=== PATIENT | female | born 1990 | race Caucasian/White ===

== ENCOUNTER 2021-03-06 17:30 | Emergency (ER) | payer OTHER ==
[~2021-03-06] VITALS: Ht 162.6 cm; Wt 103.2 kg
--- NOTE | 2021-03-06 18:13 | EKG ---
[address] [address] Test Date: 2021-03-06 Test Time: 17:37:02 Pat Name: AMADO STARR Department: Room: Gender: F Edge Grinder: HORTENSIA : 1990 Requested By: DEPARTMENT EMERGENCY Order Number: [id number] Reading MD: Wilian De Leon MD Measurements Intervals Maribel Rate: 124 P: -34 AK: 110 QRS: 31 QRSD: 76 T: 25 QT: 292 QTc: 423 Interpretive Statements SINUS TACHYCARDIA Electronically Signed On 03-08-2021 13:56:09 EXPANDER by Wilian De Leon MD
--- NOTE | 2021-03-06 18:18 | PHYS DOC ---
Past History Past Surgical History: No Surgical History Alcohol Use: None Adult General Chief Complaint Chief Complaint: RAPID HEART RATE HPI HPI Patient is a 30-year-old female who presents with a chief complaint of palpitations/rapid heart rate that started earlier today. States she did have a similar episode a couple days ago where she felt lightheaded. States he never had anything like this before but her sister does have a history of SVT and has had many episodes of the last few years with heart rate in the 200s. Denies any recent traumas, travels, illnesses, fevers, headache, chest pain, shortness of breath, abdominal pain, vomiting, dysuria, hematuria, blood in the stool or diarrhea. Denies any known ill contacts. Denies any alcohol, tobacco or drug use. States she is otherwise been eating and drinking normally for her. States she has felt thirsty more than usual over the last few days and has been urinating more as well. Review of Systems Review of Systems Review of systems otherwise unremarkable except noted in HPI Physical Exam Physical Exam Constitutional: Well developed, well nourished, no acute distress, non-toxic appearance. [] HENT: Normocephalic, atraumatic, bilateral external ears normal, oropharynx moist, no oral exudates, nose normal. [] Eyes: conjunctiva normal, no discharge. [] Neck: Normal range of motion, no tenderness, supple, no stridor. [] Cardiovascular:Heart rate regular rhythm, no murmur [] Lungs & Thorax: Bilateral breath sounds clear to auscultation [] Abdomen: soft, no tenderness, no masses, no pulsatile masses. [] Skin: Warm, dry, no erythema, no rash. [] Back: no CVA tenderness. [] Extremities: No tenderness, no cyanosis, no clubbing, ROM intact, no edema. [] Neurologic: Alert and oriented X 3, no focal deficits noted. [] Psychologic: Affect normal, judgement normal, mood normal. [] Current Patient Data Vital Signs Vital Signs Date Time Temp Pulse Resp B/P (MAP) Pulse Ox O2 Delivery O2 Flow Rate FiO2 03/06/21 17:41 99.1 128 20 128/87 (101) 100 Room Air EKG EKG [] Radiology/Procedures Radiology/Procedures [] Heart Score C/O Chest Pain: No Risk Factors: Risk Factors: DM, Current or recent (<one month) smoker, HTN, HLP, family history of CAD, obesity. Risk Scores: Risk Factors: DM, Current or recent (<one month) smoker, HTN, HLP, family history of CAD, obesity. Course & Med Decision Making Course & Med Decision Making Patient is a 30-year-old female who presents with a chief complaint of palpitations/rapid heart rate Vital signs notable for sinus tachycardia. Physical exam noted above. Patient placed on the monitor with IV access established and IV fluid begun. EKG not concerning. Troponin not concerning. D-dimer not concerning. Chest x- ray not concerning. Laboratory analysis not concerning. Urine negative. Urinalysis not concerning. On reassessment patient was asymptomatic with normal vital signs. Patient stated she is ready go home. Discussed all findings with patient. Advised to follow-up in the morning with primary care physician and set up a follow-up appointment immediately Gave return precautions to the ED. Patient grateful, verbalized understanding and agreed with plan of discharge. Dragon Disclaimer Dragon Disclaimer This electronic medical record was generated, in whole or in part, using a voice recognition dictation system. Departure Departure: Impression: Primary Impression: Palpitations Disposition: HOME / SELF CARE / HOMELESS Condition: GOOD Referrals: SHON SCHULTE DO (PCP) Patient Instructions: Palpitations Additional Instructions: Thank you for coming into the emergency department tonight and allowing us to take care of you. Please read the attached information carefully to go back over some of the things we discussed. Please be sure to stay well-hydrated and eat at least 3 nutritious meals a day. Please call your primary care physician first thing in the morning to update on your ED visit and set up a follow-up as soon as possible to discuss need for further evaluation and treatment as we discussed. Please come back to the ED with new or concerning symptoms as we discussed. NEAL COLES MD Mar 06, 2021 18:18
[2021-03-06] MEDS ORDERED: IV RINGERS SOLUTION,LACTATED 1,000 ML IV ONE (18:45)
[2021-03-06 19:02] LABS: BASO % 1 % (0-3); EOS # 0.1 x10^3/uL (0.0-0.7); EOS % 1 % (0-3); HEMOGLOBIN 13.7 g/dL (12.0-15.5); LYMPH # 2.1 x10^3/uL (1.0-4.8); LYMPH % 27 % (24-48); MEAN CORPUSCULAR HEMOGLOBIN 30 pg (25-35); MEAN CORPUSCULAR HGB CONC 33 g/dL (31-37); MEAN CORPUSCULAR VOLUME 91 fL (79-100); MONO # 0.6 x10^3/uL (0.0-1.1); MONO % 8 % (0-9); NEUT # 4.9 x10^3uL (1.8-7.7); NEUT % 63 % (31-73); PLATELET COUNT 264 x10^3/uL (140-400); RED CELL DISTRIBUTION WIDTH 13.3 % (11.5-14.5); WHITE BLOOD COUNT 7.7 x10^3/uL (4.0-11.0)
[2021-03-06 19:13] LABS: BILIRUBIN,URINE NEG (NEG); CLARITY,URINE CLEAR; COLOR,URINE YELLOW; GLUCOSE,URINE NEG (NEG)
[2021-03-06 19:14] LABS: BACTERIA,URINE FEW /HPF (0-FEW); NITRITE,URINE NEG (NEG); RBC,URINE 0 /HPF (0-2); UROBILINOGEN,URINE 0.2 mg/dL (0.2 mg/dL)
[2021-03-06 19:24] LABS: CALCIUM 9.3 mg/dL (8.5-10.1); GFR 64.3; POTASSIUM 3.5 mmol/L (3.5-5.1)
[2021-03-06 19:30] LABS: ALBUMIN 3.8 g/dL (3.4-5.0); ALBUMIN/GLOBULIN RATIO 1.2 (1.0-1.7); MAGNESIUM 2.1 mg/dL (1.8-2.4); TOTAL BILIRUBIN 0.3 mg/dL (0.2-1.0); TOTAL PROTEIN 7.1 g/dL (6.4-8.2)
[2021-03-06 19:56] VITALS: BP 106/57
--- NOTE | 2021-03-06 20:28 | RAD ---
Study: XR CHEST 1V Indication: Palpitations. Comparison: None. Findings: The cardiomediastinal silhouette and peter are within normal limits. No localized airspace opacity, pl eural effusion or pneumothorax. Impression: No acute radiographic abnormality of the chest. Electronically signed by: PAOLA PINO MD (03/06/2021 8:26 PM) [facility]
== END 2021-03-06 19:57 | disposition home or self-care (01) ==
LOC: ER 17:30
DX: R00.2 Palpitations (principal); R42 Dizziness and giddiness
CPT/HCPCS: 36415; 71045; 80053; 81001; 81025; 83735; 84484; 85025; 85379; 87086; 93005; 96360; 99285; J7120

== ENCOUNTER 2021-09-05 16:01 | Emergency (ER) | payer OTHER ==
[~2021-09-05] VITALS: Ht 162.6 cm; Wt 105.0 kg
[2021-09-05] MEDS ORDERED: IV NORMAL SALINE 1,000ML 1,000 ML IV ONE (16:45)
[2021-09-05 17:41] LABS: BASO # 0.1 x10^3/uL (0.0-0.2); BASO % 1 % (0-3); EOS # 0.2 x10^3/uL (0.0-0.7); EOS % 2 % (0-3); HEMATOCRIT 41.8 % (36.0-47.0); HEMOGLOBIN 13.7 g/dL (12.0-15.5); LYMPH # 2.1 x10^3/uL (1.0-4.8); LYMPH % 27 % (24-48); MEAN CORPUSCULAR HEMOGLOBIN 31 pg (25-35); MEAN CORPUSCULAR HGB CONC 33 g/dL (31-37); MEAN CORPUSCULAR VOLUME 93 fL (79-100); MONO # 0.7 x10^3/uL (0.0-1.1); MONO % 9 % (0-9); NEUT # 4.7 x10^3uL (1.8-7.7); NEUT % 62 % (31-73); PLATELET COUNT 252 x10^3/uL (140-400); RED BLOOD COUNT 4.49 x10^6/uL (3.50-5.40); RED CELL DISTRIBUTION WIDTH 12.9 % (11.5-14.5); WHITE BLOOD COUNT 7.7 x10^3/uL (4.0-11.0)
[2021-09-05 17:54] LABS: CALCIUM 9.2 mg/dL (8.5-10.1); CREATININE 0.7 mg/dL (0.6-1.0); POTASSIUM 3.9 mmol/L (3.5-5.1)
--- NOTE | 2021-09-05 18:57 | PHYS DOC ---
Past History Additional Past Medical Histor: SVT (PILAR DREW APRN) Past Surgical History: No Surgical History (PILAR DREW APRN) Alcohol Use: None (PILAR DREW APRN) General Adult EDM: Chief Complaint: RAPID HEART RATE HPI: HPI: Patient is a 30-year-old female who presents with concerns for low blood pressure. Patient states she checked her blood pressure at home and it was in the 90s. Patient reports has been feeling dizzy with position changes for the last couple of days. Denies recent illness. Denies shortness of breath, denies chest pain , patient states has been drinking plenty of fluids. Patient does have a history of sinus tachycardia and takes metoprolol. Denies all other medical history. (PILAR DREW APRN) Review of Systems: Review of Systems: ROS At least 10 ROS systems have been reviewed and are negative except as documented in the HPI. General: Negative except as outlined in HPI above. Skin: Negative except as outlined in HPI above. HEENT: Negative except as outlined in HPI above. Neck: Negative except as outlined in HPI above. Respiratory: Negative except as outlined in HPI above.. Cardiovascular: Negative except as outlined in HPI above. Abdomen: Negative except as outlined in HPI above. : Negative except as outlined in HPI above. Back/MSK: Negative except as outlined in HPI above. Neuro: Negative except as outlined in HPI above. Psych: Negative except as outlined in HPI above. (PILAR DREW APRN) Current Medications: Current Meds: Current Medications Medications (Trade) Dose Ordered Sig/Na Start Time Stop Time Status Last Admin Dose Admin Sodium Chloride 1,000 ml @ 1,000 mls/hr 1X ONCE 09/05/21 16:45 09/05/21 17:44 DC 09/05/21 17:21 1,000 MLS/HR (PILAR DREW APRN) Allergies: Allergies: Allergies Coded Allergies Type Severity Reaction Last Updated Verified No Known Drug Allergies 09/05/21 No (PILAR DREW APRN) Physical Exam: PE: Constitutional: Well developed, well nourished, no acute distress, non-toxic appearance. [] HENT: Normocephalic, atraumatic, bilateral external ears normal, oropharynx moist, no oral exudates, nose normal. [] Eyes: PERRLA, EOMI, conjunctiva normal, no discharge. [] Neck: Normal range of motion, no tenderness, supple, no stridor. [] Cardiovascular:Heart rate regular rhythm, no murmur [] Lungs & Thorax: Bilateral breath sounds clear to auscultation [] Abdomen: Bowel sounds normal, soft, no tenderness, no masses, no pulsatile masses. [] Skin: Warm, dry, no erythema, no rash. [] Back: No tenderness, no CVA tenderness. [] Extremities: No tenderness, no cyanosis, no clubbing, ROM intact, no edema. [] Neurologic: Alert and oriented X 3, normal motor function, normal sensory function, no focal deficits noted. [] Psychologic: Affect normal, judgement normal, mood normal. [] (PILAR DREW APRN) Current Patient Data: Labs: Laboratory Tests Test 09/05/21 17:15 White Blood Count 7.7 x10^3/uL (4.0-11.0) Red Blood Count 4.49 x10^6/uL (3.50-5.40) Hemoglobin 13.7 g/dL (12.0-15.5) Hematocrit 41.8 % (36.0-47.0) Mean Corpuscular Volume 93 fL (79-100) Mean Corpuscular Hemoglobin 31 pg (25-35) Mean Corpuscular Hemoglobin Concent 33 g/dL (31-37) Red Cell Distribution Width 12.9 % (11.5-14.5) Platelet Count 252 x10^3/uL (140-400) Neutrophils (%) (Auto) 62 % (31-73) Lymphocytes (%) (Auto) 27 % (24-48) Monocytes (%) (Auto) 9 % (0-9) Eosinophils (%) (Auto) 2 % (0-3) Basophils (%) (Auto) 1 % (0-3) Neutrophils # (Auto) 4.7 x10^3uL (1.8-7.7) Lymphocytes # (Auto) 2.1 x10^3/uL (1.0-4.8) Monocytes # (Auto) 0.7 x10^3/uL (0.0-1.1) Eosinophils # (Auto) 0.2 x10^3/uL (0.0-0.7) Basophils # (Auto) 0.1 x10^3/uL (0.0-0.2) Sodium Level 138 mmol/L (136-145) Potassium Level 3.9 mmol/L (3.5-5.1) Chloride Level 104 mmol/L (98-107) Carbon Dioxide Level 25 mmol/L (21-32) Anion Gap 9 (6-14) Blood Urea Nitrogen 16 mg/dL (7-20) Creatinine 0.7 mg/dL (0.6-1.0) Estimated GFR (Cockcroft-Gault) 97.0 Glucose Level 94 mg/dL (70-99) Calcium Level 9.2 mg/dL (8.5-10.1) Vital Signs: Vital Signs Date Time Temp Pulse Resp B/P (MAP) Pulse Ox O2 Delivery O2 Flow Rate FiO2 09/05/21 16:10 98.6 94 18 151/71 (97) 98 Room Air (PILAR DREW APRN) EKG: EKG: [] (PILAR DREW APRN) Radiology/Procedures: Radiology/Procedures: [] (PILAR DREW APRN) Heart Score: C/O Chest Pain: No Risk Factors: Risk Factors: DM, Current or recent (<one month) smoker, HTN, HLP, family history of CAD, obesity. Risk Scores: Score 0 - 3: 2.5% MACE over next 6 weeks - Discharge Home Score 4 - 6: 20.3% MACE over next 6 weeks - Admit for Clinical Observation Score 7 - 10: 72.7% MACE over next 6 weeks - Early Invasive Strategies (PILAR DREW APRN) Course & Med Decision Making: Course & Med Decision Making Pertinent Labs and Imaging studies reviewed. (See chart for details) [] 28-year-old male presents with concerns for low blood pressure. Patient reports her blood pressure was in the 90s at home. Patient's been having some dizziness for the last couple of days especially when standing up. Work-up in ER consist of CBC, CMP, EKG, urinalysis, . Patient given NS bolus. Orthostatics ordered. Patient blood pressure in the ER was 120s over 80s. Denies any chest pain, shortness of breath, headache, neuro symptoms. Urine is negative for . Orthostatics negative. Patient's heart rate did increase with standing. Advised patient to drink plenty of fluids. Patient is to follow-up with her PCP and possibly see cardiology. (PILAR DREW APRN) Marlo Disclaimer: Marlo Disclaimer: This electronic medical record was generated, in whole or in part, using a voice recognition dictation system. (PILAR DREW APRN) Departure Departure: Impression: Primary Impression: Dizziness Disposition: HOME / SELF CARE / HOMELESS Condition: STABLE Referrals: SHON SCHULTE DO (PCP) Patient Instructions: Hypotension, [id number] Additional Instructions: All of your labs came back unremarkable. You were given fluids. Your physical exam was also unremarkable. Please call your PCP on Tuesday make a follow-up appointment and possible referral for cardiology again. Make sure you are drinking plenty of fluids. Return to emergency room worsening symptoms or concerns such as shortness of breath. EMERGENCY DEPARTMENT GENERAL DISCHARGE INSTRUCTIONS Thank you for coming to [facility] (ED) today and trusting us with you care. We trust that you had a positivie experience in our Emergency Department. If you wish to speak to the department management, you may call the director at [phone]. YOUR FOLLOW UP INSTRUCTIONS ARE FOLLOWS: 1. Do you have a private Doctor? If you do not have a private doctor, please ask for a resource list of physicians or clinics that may be able to assist you with follow up care. 2. The Emergency Physician has interpreted your x-rays. The X-Ray specialist will also review them. If there is a change in the findings, you will be notified in 48 hours when at all possible. 3. A lab test or culture has been done, your results will be reviewed and you will be notified if you need a change in treatment. ADDITIONAL INSTRUCTIONS AND INFORMATION: 1. Your care today has been supervised by a physician who is specially trained in emergency care. Many problems require more than one evaluation for a complete diagnosis and treatment. We recommend that you schedule your follow up appointment as recommended to ensure complete treatment of you illness or injury. If you are unable to obtain follow up care and continue to have a problem, or if your condition worsens, we recommend that you return to the ED. 2. We are not able to safely determine your condition over the phone nor are we able to give sound medical advice over the phone. For these safety reasons, if you call for medical advice we will ask you to come to the ED for further evaluation. 3. If you have any questions regarding these discharge instructions please call the ED at [phone]. SAFETY INFORMATION: In the interest of safety, wellness, and injury prevention; we encourage you to wear your sealbelt, if you smoke; quite smoking, and we encourage family to use a protective helmet for bicycling and other sporting events that present an increased risk for head injury. IF YOUR SYMPTOMS WORSEN OR NEW SYMPTOMS DEVELOP, OR YOU HAVE CONCERNS ABOUT YOUR CONDITION; OR IF YOUR CONDITION WORSENS WHILE YOU ARE WAITING FOR YOUR FOLLOW UP APPOIN TMENT; EITHER CONTACT YOUR PRIMARY CARE DOCTOR, THE PHYSICIAN WHOSE NAME AND NUMBER YOU WERE GIVEN, OR RETURN TO THE ED IMMEDIATELY. Attending Signature Attending Signature I have participated in the care of this patient and I have reviewed and agree with all pertinent clinical information above including history, exam, and recommendations. (PREM SALGUERO MD) Attending Signature Attending Signature I have participated in the care of this patient and I have reviewed and agree with all pertinent clinical information above including history, exam, and recommendations. (PREM SALGUERO MD) Dragon Disclaimer This chart was dictated in whole or in part using Voice Recognition software in a busy, high-work load, and often noisy Emergency Department environment. It may contain unintended and wholly unrecognized errors or omissions. (PREM SALGUERO MD) PILAR DREW APRN September 05, 2021 18:57 PREM SALGUERO MD September 09, 2021 17:35
[2021-09-05 19:30] VITALS: BP 111/55
[2021-09-05 19:56] LABS: U PREG PATIENT NEGATIVE (NEG)
[2021-09-05 19:59] LABS: CLARITY,URINE CLEAR; COLOR,URINE YELLOW; GLUCOSE,URINE NEG (NEG); NITRITE,URINE NEG (NEG); UROBILINOGEN,URINE 0.2 mg/dL (0.2 mg/dL)
[2021-09-05 20:00] LABS: BACTERIA,URINE FEW /HPF (0-FEW); SQUAMOUS EPITHELIAL CELL,UR MANY /LPF
== END 2021-09-05 19:38 | disposition home or self-care (01) ==
LOC: ER 16:01
DX: R42 Dizziness and giddiness (principal)
CPT/HCPCS: 36415; 80048; 81001; 81025; 85025; 87086; 93005; 96360; 96361; 99284; J7030